=== PATIENT | male | born 1980 | race Native Hawaiian/Other Pacific Islander ===

== ENCOUNTER 2018-08-29 10:00 | Emergency (ER) | payer OTHER ==
[~2018-08-29] VITALS: Ht 165.1 cm; Wt 76.2 kg
--- NOTE | 2018-08-29 10:37 | NUR ---
Pt.was seen by .FAMILY AT BEDSIDE.
--- NOTE | 2018-08-29 11:42 | NUR ---
Pt.seen by UPDATED WITH RESOLTS OF CT AND X-RAY.
[2018-08-29 11:49] VITALS: BP 121/68
== END 2018-08-29 11:57 | disposition home or self-care (01) ==
LOC: ER 10:00
DX: S70.01XA Contusion of right hip, initial encounter (principal); S40.011A Contusion of right shoulder, initial encounter; S50.01XA Contusion of right elbow, initial encounter; M54.2 Cervicalgia; M25.561 Pain in right knee; R07.9 Chest pain, unspecified; V23.4XXA Motorcycle driver injured in collision with car, pick-up truck or van in traffic accident, initial encounter; Y93.89 Activity, other specified; Y92.410 Unspecified street and highway as the place of occurrence of the external cause; Y99.8 Other external cause status
CPT/HCPCS: 71045; 72125; 72192; 73030; 73080; A4663